=== PATIENT | female | born 1950 | race Caucasian/White ===

== ENCOUNTER 2017-10-04 14:53 | Emergency (ER) | payer BC, MEDICARE ==
--- NOTE | 2017-10-05 16:57 | EDM.PDOC ---
Scribed by Lexus Wilson 10/05/17 [id number] for Víctor Bueno MD ED HPI GENERAL MEDICAL PROBLEM - General Chief Complaint: Upper Extremity Injury/Pain Stated Complaint: FELL ON RIGHT WRIST AND SIDE Time Seen by Provider: 10/04/17 15:12 Source of Information: Reports: Patient, RN, RN Notes Reviewed History Limitations: Reports: No Limitations - History of Present Illness INITIAL COMMENTS - FREE TEXT/NARRATIVE: Patient tripped and fell at home with complaint of right wrist pain and bruise to right hip. Denies head injury or loss of consciousness. Patient has been walking on the right hip since the fall. Onset: Today, Sudden Location: Reports: Upper Extremity, Right Quality: Reports: Ache Severity: Moderate Improves with: Reports: None Worsens with: Reports: None Associated Symptoms: Reports: No Other Symptoms Right Wrist Pain Score (Numeric/FACES): 8 - Related Data Allergies Allergy/AdvReac Type Severity Reaction Status Date / Time acetaminophen [From Tylenol] Allergy Tachycardia Verified 10/04/17 15:04 Home Meds: Home Meds Aspirin [Halfprin] 81 mg PO DAILY 10/04/17 [History] Ibuprofen 400 mg PO ASDIRECTED PRN 10/04/17 [History] Past Medical History HEENT History: Reports: Impaired Vision Other HEENT History: wear glasses Cardiovascular History: Reports: None Respiratory History: Reports: None Gastrointestinal History: Reports: None Genitourinary History: Reports: None 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 Neurological History: Reports: None Psychiatric History: Reports: None Endocrine/Metabolic History: Reports: None Hematologic History: Reports: None Immunologic History: Reports: None Oncologic (Cancer) History: Reports: None Dermatologic History: Reports: None - Infectious Disease History Infectious Disease History: Reports: Chicken Pox, Measles, Mumps - Past Surgical History Head Surgeries/Procedures: Reports: None GI Surgical History: Reports: Cholecystectomy Musculoskeletal Surgical History: Reports: Hip Replacement, Other (See Below) Other Musculoskeletal Surgeries/Procedures:: foot surgery Social & Family History - Tobacco Use Smoking Status *Q: Never Smoker Second Hand Smoke Exposure: No - Caffeine Use Caffeine Use: Reports: Soda - Recreational Drug Use Recreational Drug Use: No Review of Systems - Review of Systems Review Of Systems: ROS reveals no pertinent complaints other than HPI. ED EXAM, GENERAL - Physical Exam Exam: See Below Exam Limited By: No Limitations General Appearance: Alert, WD/WN, No Apparent Distress Head: Atraumatic, Normocephalic Neck: Non-Tender, Full Range of Motion Respiratory/Chest: No Respiratory Distress, Lungs Clear, Normal Breath Sounds, No Accessory Muscle Use, Chest Non-Tender Cardiovascular: Normal Peripheral Pulses, Regular Rate, Rhythm, No Edema, No Gallop, No JVD, No Murmur, No Rub Extremities: Other (Right wrist tender with mild dorsal swelling. Decreased range of motion due to pain. No visible bruising or deformity. Skin intact. Right hip mildly tenderto palpation.Full range of motion. Normal gait. ) Course - Vital Signs Last Recorded V/S: Last Vital Signs Temp 37.2 C 10/04/17 16:12 Pulse 64 10/04/17 16:12 Resp 16 10/04/17 16:12 BP 115/49 L 10/04/17 16:12 Pulse Ox 97 10/04/17 16:12 - Radiology Interpretation Free Text/Narrative:: Right right wrist: Nondisplaced ulnar styloid fracture. Patient is nontender to palpation. See rad report. Departure - Departure Time of Disposition: 16:27 Disposition: Home, Self-Care 01 Condition: Good Clinical Impression: Right wrist sprain Qualifiers: Encounter type: initial encounter Qualified Code(s): S63.501A - Unspecified sprain of right wrist, initial encounter Contusion of right hip Qualifiers: Encounter type: initial encounter Qualified Code(s): S70.01XA - Contusion of right hip, initial encounter Fall at home Qualifiers: Encounter type: initial encounter Qualified Code(s): W19.XXXA - Unspecified fall, initial encounter; Y92.099 - Unspecified place in other non-institutional residence as the place of occurrence of the external cause; Y92.099 - Unspecified place in other non-institutional residence as the place of occurrence of the external cause Nondisplaced fracture of styloid process of right ulna Qualifiers: Encounter type: initial encounter Fracture type: closed Qualified Code(s): S52.614A - Nondisplaced fracture of right ulna styloid process, initial encounter for closed fracture - Discharge Information Instructions: Contusion, [id number], Wrist Pain, [id number] Referrals: Camila Almeida [Primary Care Provider] - Forms: ED Department Discharge Additional Instructions: Activity as tolerated. Follow up in clinic if not improved in 1 week. I have read and agree with the documentation that has been completed regarding this visit. By signing this record, I attest that the documentation was completed in my physical presence and is an accurate record of the encounter.
== END 2017-10-04 16:35 | disposition home or self-care (01) ==
LOC: DL.ED 14:53
DX: S52.614A Nondisplaced fracture of right ulna styloid process, initial encounter for closed fracture (principal); S70.01XA Contusion of right hip, initial encounter; Z88.6 Allergy status to analgesic agent; Z79.82 Long term (current) use of aspirin; W19.XXXA Unspecified fall, initial encounter; Y92.009 Unspecified place in unspecified non-institutional (private) residence as the place of occurrence of the external cause
CPT/HCPCS: 73110-RT; 99283